=== PATIENT | female | born 1950 | race Caucasian/White ===

== ENCOUNTER 2016-11-23 13:19 | Emergency (ER) | payer MEDICARE, OTHER ==
[2016-11-23 14:14] LABS: HEMOGLOBIN 15.3 gm/dl (12.3-15.3); RED BLOOD COUNT 5.02 M/UL (4.00-5.10); WHITE BLOOD COUNT 5.3 K/UL (4.5-11.0)
[2016-11-23 14:36] LABS: BUN/CREATININE RATIO 19 (0-10)
== END 2016-11-23 19:25 | disposition home or self-care (01) ==
LOC: ER1 13:19
PROVIDERS: Emergency Medicine
DX: J40 Bronchitis, not specified as acute or chronic (principal); E78.5 Hyperlipidemia, unspecified; Z85.3 Personal history of malignant neoplasm of breast; Z79.82 Long term (current) use of aspirin; Z79.899 Other long term (current) drug therapy
CPT/HCPCS: 36415; 71010; 80053; 81001; 82550; 82553; 83874; 83880; 84484; 85025; 85379; 93005; 99285

== ENCOUNTER → 2020-11-15 | Outpatient (CLI) | payer MEDICARE, SELFPAY ==
[~2020-11-15] MED LIST: BACITRACIN-POL1 EACH TOP; ERYTHROMYCIN O3.5 GM OU; KEFLEX CAP 500500 MG PO
== END ==
LOC: KOH-I 10:48
DX: R07.89 Other chest pain (principal); J98.09 Other diseases of bronchus, not elsewhere classified
CPT/HCPCS: 71046

== ENCOUNTER → 2021-02-27 | Outpatient (CLI) | payer MEDICARE, SELFPAY | LOC: KOH-I 12:39 | DX: M25.511 Pain in right shoulder (principal) | CPT/HCPCS: 73030 ==

== ENCOUNTER 2021-09-06 09:11 | Emergency (ER) | payer MEDICARE, OTHER ==
[2021-09-06] MEDS ORDERED: HYDROCODON-ACE1 EAC4 PO (10:14)
== END 2021-09-06 10:31 | disposition home or self-care (01) ==
LOC: ER1 09:11
DX: S52.512A Displaced fracture of left radial styloid process, initial encounter for closed fracture (principal); X58.XXXA Exposure to other specified factors, initial encounter; Y93.9 Activity, unspecified; Y92.009 Unspecified place in unspecified non-institutional (private) residence as the place of occurrence of the external cause
CPT/HCPCS: 29125; 73110; 99283

== ENCOUNTER → 2022-01-24 | Outpatient (CLI) | payer MEDICARE ==
[~2022-01-24] MED LIST changes: +HYDROCODON-ACE1 EAC4 PO
== END ==
LOC: KOH-I 16:09
DX: M54.50 Low back pain, unspecified (principal); M47.816 Spondylosis without myelopathy or radiculopathy, lumbar region
CPT/HCPCS: 72100

== ENCOUNTER → 2022-01-30 | Outpatient (CLI) | payer MEDICARE | LOC: KOH-I 13:17 | DX: R06.02 Shortness of breath (principal); R05.9 Cough, unspecified; M25.532 Pain in left wrist; R91.8 Other nonspecific abnormal finding of lung field | CPT/HCPCS: 71046; 73110 ==

== ENCOUNTER → 2022-02-05 | Outpatient (CLI) | payer MEDICARE | LOC: ECHO 11:01 | DX: R06.02 Shortness of breath (principal); I08.3 Combined rheumatic disorders of mitral, aortic and tricuspid valves | CPT/HCPCS: ECHO; 93306 ==

== ENCOUNTER → 2022-03-12 | Outpatient (CLI) | payer MEDICARE | LOC: EXRD 12:59 | DX: M81.0 Age-related osteoporosis without current pathological fracture (principal); M85.88 Other specified disorders of bone density and structure, other site | CPT/HCPCS: 77080 ==